=== PATIENT | male | born 1990 | race African-American/Black ===

== ENCOUNTER 2016-10-25 22:34 | Emergency (ER) | payer MEDICAID ==
[2016-10-25] MEDS ORDERED: Ketorolac 60 MG/2 ML SDV IM ONE (22:39)
--- NOTE | 2016-10-25 22:42 | EDM.PDOC ---
ED HPI GENERAL MEDICAL PROBLEM - General Chief Complaint: Headache Stated Complaint: MIGRAINE Time Seen by Provider: 10/25/16 22:38 - History of Present Illness INITIAL COMMENTS - FREE TEXT/NARRATIVE: HISTORY AND PHYSICAL: History of present illness: Patient is 26-year-old black male history of headache who presents today with headache he states one prior episode this is related to low blood sugar he denies trauma denies numbness weakness visual disturbance or any other neurological signs or symptoms Review of systems: As per history of present illness and below otherwise all systems reviewed and negative. Past medical history: As per history of present illness and as reviewed below otherwise noncontributory. Surgical history: As per history of present illness and as reviewed below otherwise noncontributory. Social history: No reported history of drug or alcohol abuse. Family history: As per history of present illness and as reviewed below otherwise noncontributory. Physical exam: HEENT: Atraumatic, normocephalic, pupils reactive, negative for conjunctival pallor or scleral icterus, mucous membranes moist, throat clear, neck supple, nontender, trachea midline. Lungs: Clear to auscultation, breath sounds equal bilaterally, chest nontender. Heart: S1S2, regular, negative for clicks, rubs, or JVD. Abdomen: Soft, nondistended, nontender. Negative for masses or hepatosplenomegaly. Negative for costovertebral tenderness. Pelvis: Stable nontender. Genitourinary: Deferred. Rectal: Deferred. Extremities: Atraumatic, negative for cords or calf pain. Neurovascular unremarkable. Neuro: Awake, alert, oriented. Cranial nerves II through XII unremarkable. Cerebellum unremarkable. Motor and sensory unremarkable throughout. Exam nonfocal. Diagnostics: Carboxyhemoglobin CT brain blood sugar Therapeutics: Toradol 60 mg IM Impression: #1 cephalgia Definitive disposition and diagnosis as appropriate pending reevaluation and review of above. - Related Data Allergies Allergy/AdvReac Type Severity Reaction Status Date / Time Penicillins Allergy Other Verified 10/25/16 22:38 Home Meds: Home Meds . [No Known Home Meds] 10/25/16 [History] ED ROS GENERAL - Review of Systems Review Of Systems: ROS reveals no pertinent complaints other than HPI. ED EXAM, GENERAL - Physical Exam Exam: See Below (See dictation) Course - Orders/Labs/Meds Orders: Active Orders 24 hr Category Date Time Status Blood Glucose Check, Bedside [RC] ONETIME Care 10/25/16 22:39 Ordered Head wo Cont [CT] Stat Exams 10/25/16 22:39 Ordered CARBOXYHEMOGLOBIN [BG] Stat Lab 10/25/16 22:39 Ordered Meds: Medications Discontinued Medications Generic Name Dose Route Start Last Admin Trade Name Virgil PRN Reason Stop Dose Admin Ketorolac Tromethamine 60 mg 10/25/16 22:39 Toradol IM 10/25/16 22:40 ONETIME ONE Departure - Departure Time of Disposition: 22:41 Disposition: Home, Self-Care 01 Condition: good Clinical Impression: Cephalgia Forms: ED Department Discharge Additional Instructions: The following information is given to patients seen in the emergency department who are being discharged to home. This information is to outline your options for follow-up care. We provide all patients seen in our emergency department with a follow-up referral. The need for follow-up, as well as the timing and circumstances, are variable depending upon the specifics of your emergency department visit. If you don't have a primary care physician on staff, we will provide you with a referral. We always advise you to contact your personal physician following an emergency department visit to inform them of the circumstance of the visit and for follow-up with them and/or the need for any referrals to a consulting specialist. The emergency department will also refer you to a specialist when appropriate. This referral assures that you have the opportunity for followup care with a specialist. All of these measure are taken in an effort to provide you with optimal care, which includes your followup. Under all circumstances we always encourage you to contact your private physician who remains a resource for coordinating your care. When calling for followup care, please make the office aware that this follow-up is from your recent emergency room visit. If for any reason you are refused follow-up, please contact the [facility] emergency department at and asked to speak to the emergency department charge nurse. Primary Care [facility] [place] [id number] Specialty Care - Neurology Professional Building [address] [place] [address], [address] [place] [address] Motrin/Tylenol as directed follow up primary care/neurology as referred return as needed as discussed - My Orders Last 24 Hours: My Active Orders 10/25/16 22:39 Blood Glucose Check, Bedside [RC] ONETIME Head wo Cont [CT] Stat CARBOXYHEMOGLOBIN [BG] Stat - Assessment/Plan Last 24 Hours: My Active Orders 10/25/16 22:39 Blood Glucose Check, Bedside [RC] ONETIME Head wo Cont [CT] Stat CARBOXYHEMOGLOBIN [BG] Stat
[2016-10-26 00:28] VITALS: BP 130/65
--- NOTE | 2016-10-28 15:49 | CT ---
EXAM DATE: 10/25/16 PATIENT'S AGE: 26 Patient: JOSIAH ESPINOSA Facility: [place], [place] Site . Site : 1990 Study: CT Head [id number]/[id number] 11:03:17 PM Ordering Physician: Ehsan Hernandez Final Report: INDICATION: Migraine headache TECHNIQUE: CT head without contrast. COMPARISON: None FINDINGS: CSF spaces: Within normal limits for age. Brain parenchyma: The mark-white differentiation is normal. No sign of mass, hemorrhage, or midline shift. Skull base and calvarium: The visualized paranasal sinuses and mastoid air cells demonstrate no acute or significant findings. The visualized orbits are grossly unremarkable. No skull fractures. IMPRESSION: Unremarkable noncontrast head CT. Dictated by Ally Fried MD @ Oct 25 2016 11:22PM (Electronic Signature) Report Signed by Proxy. ERMIAS
== END 2016-10-26 00:10 | disposition home or self-care (01) ==
LOC: MW.ED 22:34
DX: R51 Headache (principal); Z88.0 Allergy status to penicillin
CPT/HCPCS: 70450; 82375; 82962; 96372; 99284; J1885; 99283

== ENCOUNTER → 2016-11-02 | Outpatient (CLI) | payer MEDICAID ==
[2016-11-02 14:42] LABS: CHLORIDE,CL 106 mmol/L (98-110); SODIUM,NA 139 mmol/L (136-146)
== END ==
LOC: MW.CHIM 14:05
PROVIDERS: ATTEND Internal Medicine
DX: R51 Headache (principal)
CPT/HCPCS: 36415; 80053; 84443; 85025

== ENCOUNTER 2017-02-20 15:42 | Emergency (ER) | payer SELFPAY ==
--- NOTE | 2017-02-20 16:49 | EDM.PDOC ---
ED HPI GENERAL MEDICAL PROBLEM - General Chief Complaint: Back Pain or Injury Stated Complaint: BACK PAIN Time Seen by Provider: 02/20/17 15:46 - History of Present Illness INITIAL COMMENTS - FREE TEXT/NARRATIVE: HISTORY AND PHYSICAL: History of present illness: This is a 26-year-old male presenting to the emergency department with a chief complaint of back pain. Patient tells me that while he was working at [employer], he was trying to move furniture and when he placed a furniture on the ground and felt a pull in his back 2 days ago. Tells me that his back pain is located in the center of his back. Nonradiating. Denies any numbness or tingling. Denies any bowel or bladder issues. Denies any fevers or chills. Denies any headache. Denies any blurry vision. Review of systems: As per history of present illness and below otherwise all systems reviewed and negative. Past medical history: As per history of present illness and as reviewed below otherwise noncontributory. Surgical history: As per history of present illness and as reviewed below otherwise noncontributory. Social history: No reported history of drug or alcohol abuse. Family history: As per history of present illness and as reviewed below otherwise noncontributory. Physical exam: HEENT: Atraumatic, normocephalic, pupils reactive, negative for conjunctival pallor or scleral icterus, mucous membranes moist, throat clear, neck supple, nontender, trachea midline. Lungs: Clear to auscultation, breath sounds equal bilaterally, chest nontender. Heart: S1S2, regular, negative for clicks, rubs, or JVD. Abdomen: Soft, nondistended, nontender. Negative for masses or hepatosplenomegaly. Negative for costovertebral tenderness. Pelvis: Stable nontender. Genitourinary: Deferred. Rectal: Deferred. Extremities: Atraumatic, negative for cords or calf pain. Neurovascular unremarkable. Negative straight leg raise test Neuro: Awake, alert, oriented. Cranial nerves II through XII unremarkable. Cerebellum unremarkable. Motor and sensory unremarkable throughout. Exam nonfocal. Diagnostics: X-ray lumbosacral Therapeutics: 60 mg IM Toradol Impression: Lumbosacral strain Plan: Discharged home Orphenadrine 100 mg by mouth twice a day 7 days #14 tablets 0 refills. Advised to follow-up with Dr. Liriano in clinic in one week. Definitive disposition and diagnosis as appropriate pending reevaluation and review of above. Middle Back Pain Score (Numeric/FACES): 6 - Related Data Allergies Allergy/AdvReac Type Severity Reaction Status Date / Time Penicillins Allergy Other Verified 10/25/16 22:38 Home Meds: Home Meds Orphenadrine [Norflex] 100 mg PO BID #14 tab.er 02/20/17 [Rx] Past Medical History - Past Health History Medical/Surgical History: Denies Medical/Surgical History Cardiovascular History: Reports: Other (See Below) Other Cardiovascular History: pt reports an irregular HR at the age of 13 Endocrine/Metabolic History: Reports: None - Infectious Disease History Infectious Disease History: Reports: Chicken Pox Social & Family History - Family History Family Medical History: Noncontributory - Tobacco Use Smoking Status *Q: Current Every Day Smoker Years of Tobacco use: 5 Packs/Tins Daily: 0.5 - Caffeine Use Caffeine Use: Reports: Coffee, Soda - Recreational Drug Use Recreational Drug Use: No ED ROS GENERAL - Review of Systems Review Of Systems: See Below (see dictation) ED EXAM,LOWER BACK PAIN/INJURY - Physical Exam Exam: See Below (See dictation) Course - Vital Signs Last Recorded V/S: Last Vital Signs Temp 36.3 C 02/20/17 16:31 Pulse 61 02/20/17 16:31 Resp 18 02/20/17 16:31 BP 127/70 02/20/17 16:31 Pulse Ox 97 02/20/17 16:31 - Orders/Labs/Meds Orders: Active Orders 24 hr Category Date Time Status Lumbar Spine 2 or 3V [CR] Stat Exams 02/20/17 16:46 Taken Meds: Medications Discontinued Medications Generic Name Dose Route Start Last Admin Trade Name Freq PRN Reason Stop Dose Admin Ketorolac Tromethamine 30 mg 02/20/17 16:51 02/20/17 17:57 Toradol IVPUSH 02/20/17 16:52 Not Given ONETIME ONE Ketorolac Tromethamine 60 mg 02/20/17 16:53 02/20/17 16:57 Toradol IM 02/20/17 16:54 60 mg ONETIME ONE Administration Departure - Departure Time of Disposition: 18:25 Disposition: Home, Self-Care 01 Condition: Good Clinical Impression: Back pain of thoracolumbar region - Discharge Information Prescriptions: Orphenadrine [Norflex] 100 mg PO BID #14 tab.er Forms: ED Department Discharge Additional Instructions: The following information is given to patients seen in the emergency department who are being discharged to home. This information is to outline your options for follow-up care. We provide all patients seen in our emergency department with a follow-up referral. The need for follow-up, as well as the timing and circumstances, are variable depending upon the specifics of your emergency department visit. If you don't have a primary care physician on staff, we will provide you with a referral. We always advise you to contact your personal physician following an emergency department visit to inform them of the circumstance of the visit and for follow-up with them and/or the need for any referrals to a consulting specialist. The emergency department will also refer you to a specialist when appropriate. This referral assures that you have the opportunity for follow-up care with a specialist. All of these measure are taken in an effort to provide you with optimal care, which includes your follow-up. Under all circumstances we always encourage you to contact your private physician who remains a resource for coordinating your care. When calling for follow-up care, please make the office aware that this follow-up is from your recent emergency room visit. If for any reason you are refused follow-up, please contact the [facility] Emergency Department at and asked to speak to the emergency department charge nurse. Prescription as prescribed. Follow up with primary care provider. Return precautions as discussed. - My Orders Last 24 Hours: My Active Orders 02/20/17 16:46 Lumbar Spine 2 or 3V [CR] Stat - Assessment/Plan Last 24 Hours: My Active Orders 02/20/17 16:46 Lumbar Spine 2 or 3V [CR] Stat
[2017-02-20] MEDS ORDERED: Ketorolac 30 MG/ML SDV IVPUSH ONE (16:51)
[2017-02-20] MEDS ORDERED: Ketorolac 60 MG/2 ML SDV IM ONE (16:53)
[2017-02-20 18:48] VITALS: BP 127/65
--- NOTE | 2017-02-21 11:04 | CR ---
EXAM DATE: 02/20/17 PATIENT'S AGE: 26 Patient: JOSIAH ESPINOSA Facility: [place], [place] Site . Site : 1990 Study: XRay Spine Lumbar [id number]/23/2017 5:23:02 PM Ordering Physician: Heri Benítez Final Report: INDICATION: Back pain TECHNIQUE: Lumbar spine 3 view. COMPARISON: None FINDINGS: Bones: Alignment is normal. No fractures or significant bone lesions. Joints: Disc spaces and facets are unremarkable. Soft tissues: Unremarkable. IMPRESSION: Unremarkable lumbar spine. Dictated by lAly Fried MD @ Feb 20 2017 6:14PM (Electronic Signature) Report Signed by Proxy. ERMIAS
== END 2017-02-20 18:58 | disposition home or self-care (01) ==
LOC: MW.ED 15:42
DX: S39.012A Strain of muscle, fascia and tendon of lower back, initial encounter (principal); F17.210 Nicotine dependence, cigarettes, uncomplicated; Z88.0 Allergy status to penicillin; X50.0XXA Overexertion from strenuous movement or load, initial encounter; Y92.512 Supermarket, store or market as the place of occurrence of the external cause; Y99.0 Civilian activity done for income or pay
CPT/HCPCS: 72100; 96372; 99283; J1885